=== PATIENT | female | born 1950 | race Caucasian/White ===

== ENCOUNTER 2017-07-07 16:08 | Observation (INO) | payer MEDICARE, MEDICAID ==
[~2017-07-07] VITALS: Ht 152.4 cm; Wt 71.9 kg
[~2017-07-07 16:08] MED LIST: ATIVAN0.5 MG PO; DICLOFENAC SODI PO; DICYCLOMINE10 MG PO; JANUVIA50 MG PO; LEVEMIR FL100 UNIT/M SC; LYRICA25 MG PO; OXYCODONE HCL15 MG PO; PLAVIX75 MG PO; PRILOSEC40 MG PO; TEMAZEPAM30 MG PO; ULTRAM50 M1 PO
[2017-07-07 16:58] LABS: HEMATOCRIT 31.2 % (37.0-47.0); HEMOGLOBIN 9.7 g/dl (12.0-16.0); IMMATURE GRANULOCYTES 0.3 % (0.0-1.0); MEAN CELL VOLUME 84.1 fL CALC (80.0-100.0); MEAN CORPUSCULAR HGB 26.1 pG CALC (26.0-32.0); MEAN CORPUSCULAR HGB CONC 31.1 g/L CALC (32.0-36.0); NEUT# 1.06 thou/uL (2.00-7.15); RED BLOOD COUNT 3.71 mill/uL (4.20-5.60); RED CELL DISTRI WIDTH 16.8 % (11.5-15.5)
[2017-07-07] MEDS ORDERED: PRAVASTATIN20 MG PO (16:59)
[2017-07-07] MEDS ORDERED: PROTONIX40 M2 PO (17:00)
[2017-07-07 17:39] LABS: ALBUMIN 3.6 g/dL (3.2-5.0); ALKALINE PHOSPHATASE 101 u/l (38-126); ANION GAP 16 (6-22 (CALC)); BILIRUBIN, TOTAL 0.6 mg/dL (0.0-1.4); BUN 8 mg/dL (8-23); BUN/CREATININE RATIO 11 (12-20 (CALC)); CALCIUM 9.4 mg/dL (8.4-10.2); CARBON DIOXIDE 26 mmol/l (22-30); CHLORIDE 105 mmol/l (95-108); CREATININE 0.7 mg/dL (0.5-1.0); GFR > 60 ML/MIN (>=60 (CALC)); GFR FOR AFR.AMER. > 60 ML/MIN (>=60 (CALC)); GLUCOSE 123 mg/dL (82-115); POTASSIUM 3.4 mmol/l (3.5-5.1); SGOT/AST 149 u/l (9-36); SGPT/ALT 73 u/l (11-66); SODIUM 143 mmol/l (137-146)
[2017-07-07 17:52] LABS: MYOGLOBIN 46 ng/mL (0 - 62)
[2017-07-07 19:27] VITALS: BP 176/77
[2017-07-08 00:40] VITALS: BP 107/67; BP 162/56
[2017-07-08 05:28] VITALS: BP 170/90
[2017-07-08 06:10] LABS: HEMATOCRIT 34.2 % (37.0-47.0); HEMOGLOBIN 10.8 g/dl (12.0-16.0); MEAN CELL VOLUME 83.2 fL CALC (80.0-100.0); MEAN CORPUSCULAR HGB 26.3 pG CALC (26.0-32.0); MEAN CORPUSCULAR HGB CONC 31.6 g/L CALC (32.0-36.0); RED BLOOD COUNT 4.11 mill/uL (4.20-5.60); RED CELL DISTRI WIDTH 16.5 % (11.5-15.5)
[2017-07-08 06:23] LABS: ANION GAP 15 (6-22 (CALC)); BUN 7 mg/dL (8-23); BUN/CREATININE RATIO 10 (12-20 (CALC)); CALCIUM 9.5 mg/dL (8.4-10.2); CALCULATED LDLCHOLESTEROL 78 mg/dL (62-129 (CALC)); CARBON DIOXIDE 26 mmol/l (22-30); CHLORIDE 105 mmol/l (95-108); CHOLESTEROL HDL RATIO 3.2 (<4.4 (CALC)); CREATININE 0.7 mg/dL (0.5-1.0); GFR > 60 ML/MIN (>=60 (CALC)); GFR FOR AFR.AMER. > 60 ML/MIN (>=60 (CALC)); GLUCOSE 115 mg/dL (82-115); HDL CHOLESTEROL 47 mg/dL (>=40); MAGNESIUM 1.7 mg/dL (1.6-2.3); POTASSIUM 3.4 mmol/l (3.5-5.1); SODIUM 143 mmol/l (137-146); TOTAL CHOLESTEROL 152 mg/dl (0-199); TOTAL TRIGLYCERIDES 134 mg/dl (30-149); VLDL CHOLESTROL 27 mg/dl (1-41 (CALC))
[2017-07-08 07:19] VITALS: BP 109/63
[2017-07-08 12:00] VITALS: BP 115/70
[2017-07-08] MEDS ORDERED: LEVEMIR100 UNIT/M SC (14:03)
[2017-07-08] MEDS ORDERED: LISINOPRIL5 MG PO (14:04)
[2017-07-08] MEDS ORDERED: LOPRESSOR25 MG PO (14:04)
== END 2017-07-08 14:58 | disposition home or self-care (01) ==
LOC: ED 16:08 → ED-I 17:50 → ED 18:03 → MS2 18:04
PROVIDERS: Emergency Medicine; ADMIT Internal Medicine; ATTEND Internal Medicine
DX: R07.9 Chest pain, unspecified (principal); I10 Essential (primary) hypertension; E11.40 Type 2 diabetes mellitus with diabetic neuropathy, unspecified; E78.5 Hyperlipidemia, unspecified; I25.10 Atherosclerotic heart disease of native coronary artery without angina pectoris; M19.90 Unspecified osteoarthritis, unspecified site; G89.29 Other chronic pain; Z85.3 Personal history of malignant neoplasm of breast; Z79.4 Long term (current) use of insulin; Z95.5 Presence of coronary angioplasty implant and graft; Z91.14 Patient's other noncompliance with medication regimen

== ENCOUNTER 2017-08-02 21:29 | Inpatient (IN) | payer MEDICARE, MEDICAID ==
[~2017-08-02] VITALS: Ht 152.4 cm; Wt 73.6 kg
[~2017-08-02 21:29] MED LIST changes: +LEVEMIR100 UNIT/M SC; +LISINOPRIL5 MG PO; +LOPRESSOR25 MG PO; +PRAVASTATIN20 MG PO; +PROTONIX40 M2 PO
--- NOTE | 2017-08-02 21:29 | NUR ---
RECEIVED VIA EMS, [id number].
[2017-08-02 22:04] LABS: HEMATOCRIT 38.2 % (37.0-47.0); HEMOGLOBIN 11.8 g/dl (12.0-16.0); IMMATURE GRANULOCYTES 0.7 % (0.0-1.0); MEAN CORPUSCULAR HGB 25.9 pG CALC (26.0-32.0); MEAN CORPUSCULAR HGB CONC 30.9 g/L CALC (32.0-36.0); NEUT# 5.17 thou/uL (2.00-7.15); RED BLOOD COUNT 4.55 mill/uL (4.20-5.60); RED CELL DISTRI WIDTH 14.7 % (11.5-15.5)
--- NOTE | 2017-08-02 22:15 | NUR ---
PT TO CT.
[2017-08-02 22:16] LABS: URINE BILIRUBIN - DIPSTICK NEGATIVE (NEGATIVE); URINE BLOOD DIPSTICK NEGATIVE (NEGATIVE); URINE CLARITY CLEAR; URINE COLOR YELLOW; URINE GLUCOSE - DIPSTICK NEGATIVE (NEGATIVE); URINE KETONE NEGATIVE (NEGATIVE); URINE LEUK ESTERASE NEGATIVE (NEGATIVE); URINE NITRITE - DIPSTICK NEGATIVE (Negative); URINE PROTEIN - DIPSTICK TRACE mg/dL (NEG-TRACE); URINE SPECIFIC GRAVITY 1.025; URINE UROBILINOGEN - DIPSTICK 0.2 E.U./dL (0.2)
[2017-08-02 22:32] LABS: ALBUMIN 4.2 g/dL (3.2-5.0); ALKALINE PHOSPHATASE 90 u/l (38-126); ANION GAP 18 (6-22 (CALC)); BILIRUBIN, TOTAL 0.4 mg/dL (0.0-1.4); BUN 9 mg/dL (8-23); BUN/CREATININE RATIO 8 (12-20 (CALC)); CALCIUM 9.6 mg/dL (8.4-10.2); CARBON DIOXIDE 21 mmol/l (22-30); CHLORIDE 110 mmol/l (95-108); CREATININE 1.2 mg/dL (0.5-1.0); GFR 45 ML/MIN (>=60 (CALC)); GFR FOR AFR.AMER. 54 ML/MIN (>=60 (CALC)); GLUCOSE 124 mg/dL (82-115); POTASSIUM 4.2 mmol/l (3.5-5.1); SGOT/AST 21 u/l (9-36); SGPT/ALT 23 u/l (11-66); SODIUM 145 mmol/l (137-146); TOTAL PROTEIN 8.1 g/dL (6.3-8.2)
--- NOTE | 2017-08-02 22:40 | NUR ---
PT RETURNED FROM CT. NO DISTRESS NOTED.
[2017-08-02 22:44] LABS: MYOGLOBIN 58 ng/mL (0 - 62)
--- NOTE | 2017-08-02 23:08 | NUR ---
ORTHO VS FLAT 153/75 P99 SITTING 148/76 P99 PT UNSTABLE TO STAND.
--- NOTE | 2017-08-02 23:40 | NUR ---
PT WITH SEIZURE ACTIVITY, EYES ROLED, PT BEGAN SHAKING, NOT RESPONSIVE. PT INCONTINENT URINE.
--- NOTE | 2017-08-02 23:43 | NUR ---
PT POST ICTAL, SNORING RESPIRATIONS.
[2017-08-02 23:44] LABS: BARBITURATES NEGATIVE (NEGATIVE); COCAINE NEGATIVE (NEGATIVE); METHADONE NEGATIVE (NEGATIVE); OXCYCODONE NEGATIVE (NEGATIVE); TETRAHYDROCANNABIONOL NEGATIVE (NEGATIVE); TRICYLIC ANTIDEPRESSANTS NEGATIVE (NEGATIVE)
--- NOTE | 2017-08-03 00:21 | NUR ---
REPORT CALLED TO [facility]
[2017-08-03 00:45] VITALS: BP 124/51
--- NOTE | 2017-08-03 00:45 | NUR ---
PT ARRIVED TO FLOOR VIA STRETCHER IN STABLE CONDITION ACCOMPANIED BY [facility] AND FAMILY;PT TRANSFERRED TO BED WITH 2 PERSON ASSIST;VS AND WT OBTAINED BY VERNON FOWLER;PT ALERT AND ORIENTED AT THIS TIME;RESPIRATIONS EVEN AND UNLABORED ON RA;PT ORIENTED TO ROOM AND CALL LIGHT AND VERBALIZES UNDERSTANDING;PT COMPLAINS OF HEAD AND BACK PAIN RATING 8/10 ON THE PAIN SCALE AND REQUESTS PAIN MEDICATION;PT TO BE MEDICATED ONCE MEDICATIONS ARE PROFILED;ASSESSMENT COMPLETED;PT REPORTS BEING ON OXYCODONE 30MG DAILY FOR 5+ YEARS AND SINCE MOVING HER PRIMARY CARE DOCTOR HASNT REFILLED HER SCRIPTS AND SHE HAS BEEN FEELING DIZZY AND CRAMPING OF HER LEGS SINCE;SEIZURE PRECAUTIONS PUT INTO PLACE;#20G TO RAC FLUSHED AND LR STARTED @ 100.0;X2 SKIN TEARS NOTED TO LEFT HAND,PT STATES THESE ARE FROM "THE FALL";SKIN CLEANED WITH NS,PHOTOGRAPHS OBTAINED AND COVER WITH BAND AIDS;SAFETY PRECAUTIONS REINFORCED;PT VOICES NO OTHER NEEDS OR CONCERNS AT THIS TIME;PT EDUCATED TO CALL FOR ASSISTANCE IF NEEDED;CALL LIGHT IN REACH;WILL CONTINUE TO MONITOR
--- NOTE | 2017-08-03 00:50 | NUR ---
PT TO [id number] WITH RN ON TELE.
--- NOTE | 2017-08-03 01:45 | NUR ---
PT MEDICATED WITH PERCOCET 10/325MG FOR BACK AND HEAD PAIN RATING 8/10 ON THE PAIN SCALE;WILL CONTINUE TO MONITOR
--- NOTE | 2017-08-03 04:00 | NUR ---
PT CALLED WRITTER TO THE ROOM AND REQUEST "SOMETHING FOR PAIN";PT RE-EDUCATED THAT SHE JUST GOT A PERCOCET @ 0145 AND THAT THEY ARE SCHEDULED EVERY 4HRS;PT VERBALIZES UNDERSTANDING AND STATES "IM EXHAUSTED SO ILL JUST GO TO SLEEP";IV FLUIDS CONTINUE TO INFUSE WELL;SEIZURE PRECAUTIONS IN PLACE;RESPIRATIONS EVEN AND UNLABORED;WILL CONTINUE TO MONITOR
--- NOTE | 2017-08-03 06:00 | NUR ---
PT RESTING IN SEMI FOWLERS POSITION WATCHING TV;PT COMPLAINS OF HEAD AND BACK PAIN RATING 9/10 ON THE PAIN SCALE AND REQUESTS PAIN MEDICATION;PT MEDICATED WITH PRN PERCOCET;PT DENIES ANY OTHER NEEDS AT THIS TIME;CALL LIGHT IN REACH;WILL CONTINUE TO MONITOR
[2017-08-03 06:30] LABS: ANION GAP 14 (6-22 (CALC)); BUN 9 mg/dL (8-23); BUN/CREATININE RATIO 11 (12-20 (CALC)); CALCIUM 9.3 mg/dL (8.4-10.2); CARBON DIOXIDE 21 mmol/l (22-30); CHLORIDE 113 mmol/l (95-108); CREATININE 0.8 mg/dL (0.5-1.0); GFR > 60 ML/MIN (>=60 (CALC)); GFR FOR AFR.AMER. > 60 ML/MIN (>=60 (CALC)); GLUCOSE 77 mg/dL (82-115); MAGNESIUM 2.1 mg/dL (1.6-2.3); POTASSIUM 4.1 mmol/l (3.5-5.1); SODIUM 144 mmol/l (137-146)
--- NOTE | 2017-08-03 06:30 | NUR ---
LAB CALLED WITH CRITICAL TROP OF 0.201,MD NOTIFED;VS AND EKG COMPLETED;PT ASYMPTOMATIC AT THIS TIME;WILL CONTINUE TO MONITOR
[2017-08-03 06:34] VITALS: BP 123/76
[2017-08-03 06:39] VITALS: BP 129/58
--- NOTE | 2017-08-03 07:25 | NUR ---
REPORT RECEIVED FROM NIGHT NURSE, PT.IN BED WITH LIGHTS OUT SLEEPING. NO S/S OF DISTRESS, CALL LIGHT W/IN REACH, BED IN LOWEST POSITION AND SEIZURE PRECAUTIONS IN PLACE.
[2017-08-03 08:00] VITALS: BP 120/54
--- NOTE | 2017-08-03 10:48 | NUR ---
PT.UPRIGHT IN BED ON TELEPHONE, UPON MY ENTERING THE ROOM, SHE HUNG UP THE PHONE AND PROCEEDED TO TELL ME ABOUT HER KIDS AND GRANDKIDS. PT.HAD REQUESTED HER PAIN MEDICATION AT 0923, BUT IT WAS NOT AVAILABLE YET. I MEDICATED PT.FOR C/O PAIN 06/11 AT THIS TIME. PT.ASSESSED, REPORTS BM YESTERDAY, NO DIFFICULTIES URINATING, LUNG SOUNDS ARE CLEAR, PT.REPORTS CRYING VERY EASILY ANV FEELING VERY EMOTIONAL ALL OF THE TIME, BUT REPORTS THAT SHE IS NOT ON ANYTHING FOR ANXIETY OR DEPRESSION, DENIES TAKING XANAX OR ANY OTHERS. REPORTS TAKING OXYCODONE 2-3X/DAY FOR 7 OR 8 YEARS. TWO SKIN TEARS ON LEFT WRIST, DRESSING CDI
--- NOTE | 2017-08-03 11:27 | NUR ---
LAB CALLED TO REPORT TROPONIN LEVELS 0.160, TRENDING DOWN FROM 0.201. DR. SCHILLING HAS BEEN NOTIFIED.
[2017-08-03 14:28] VITALS: BP 121/50
[2017-08-03 19:00] VITALS: BP 122/72
--- NOTE | 2017-08-03 19:30 | NUR ---
PT COMPLAINS OF LOWER BACK PAIN RATING 9/10 ON THE PAIN SCALE AND REQUESTS PAIN MEDICATION;PT MEDICATED WITH PRN PERCOCET AND REPOSITIONED IN BED;ASSESSMENT COMPLETED;#20G TO RAC INFUSING LR @ 100.0 WELL,IV SITE APPEARS HEALTHY;RESPIRATIONS EVEN AND UNLABORED ON RA;SEIZURE PRECAUTIONS IN PLACE;SKIN TEARS X2 TO LEFT HAND NOTED AND COVERED WITH BAND AIDS,PHOTOGRAPHS IN CHART;SAFETY PRECAUTIONS REINFORCED;PT VOICES NO OTHER NEEDS AT THIS TIME;CALL LIGHT IN REACH;WILL CONTINUE TO MONITOR
[2017-08-04 00:15] VITALS: BP 122/68
--- NOTE | 2017-08-04 00:45 | NUR ---
PT RESTING IN BED WITH IV FLUIDS INFUSING WELL;SEIZURE PRECAUTIONS IN PLACE;PT VOICES NO COMPLAINTS AT THIS TIME;CALL LIGHT IN REACH;WILL CONTINUE TO MONITOR
[2017-08-04 04:50] VITALS: BP 123/56
--- NOTE | 2017-08-04 04:50 | NUR ---
PT REQUESTS PAIN MEDICATION FOR LEFT SHOULDER PAIN RATING 9/10 ON THE PAIN SCALE;PT MEDICATED WITH PRN PERCOCET;IV FLUIDS INFUSING WELL TO RAC;RESPIRATIONS EVEN AND UNLABORED;SEIZURE PRECAUTIONS IN PLACE;PT DENIES ANY NEEDS AT THIS TIME;CALL LIGHT IN REACH;WILL CONTINUE TO MONITOR
[2017-08-04 06:09] LABS: HEMATOCRIT 33.6 % (37.0-47.0); HEMOGLOBIN 10.5 g/dl (12.0-16.0); IMMATURE GRANULOCYTES 0.4 % (0.0-1.0); MEAN CELL VOLUME 83.8 fL CALC (80.0-100.0); MEAN CORPUSCULAR HGB 26.2 pG CALC (26.0-32.0); MEAN CORPUSCULAR HGB CONC 31.3 g/L CALC (32.0-36.0); NEUT# 1.62 thou/uL (2.00-7.15); RED BLOOD COUNT 4.01 mill/uL (4.20-5.60); RED CELL DISTRI WIDTH 14.6 % (11.5-15.5)
[2017-08-04 06:31] LABS: ANION GAP 14 (6-22 (CALC)); BUN 8 mg/dL (8-23); BUN/CREATININE RATIO 11 (12-20 (CALC)); CALCIUM 9.2 mg/dL (8.4-10.2); CARBON DIOXIDE 23 mmol/l (22-30); CHLORIDE 111 mmol/l (95-108); CREATININE 0.8 mg/dL (0.5-1.0); GFR > 60 ML/MIN (>=60 (CALC)); GFR FOR AFR.AMER. > 60 ML/MIN (>=60 (CALC)); GLUCOSE 84 mg/dL (82-115); POTASSIUM 4.8 mmol/l (3.5-5.1); SODIUM 143 mmol/l (137-146)
--- NOTE | 2017-08-04 07:10 | NUR ---
PT.IN BED W/TV ON AND LIGHTS LOW, AWOKE TO OUR ENTERING ROOM. REPORT RECEIVED FROM NIGHT NURSE. PT.DENIES ANY NEEDS AT THIS TIME. WILL F/UP WITH V/S AND AM MEDICATIONS. CALL LIGHT IS AT PT.SIDE.
[2017-08-04 07:35] VITALS: BP 138/81
[2017-08-04 11:08] VITALS: BP 143/75
--- NOTE | 2017-08-04 11:24 | NUR ---
SHANKAR WITH LAB CALLED TO REPORT CRITICAL TROPONIN OF 0.042. PT.TROPONIN LEVELS ARE TRENDING DOWN FROM 0.160 TO NOW 0.042. JORGE FOX AND ARE ON THE FLOOR AT THIS TIME AND HAVE BEEN NOTIFIED, ALTHOUGH THE WERE PREVIOUSLY AWARE OF THE TREND.
--- NOTE | 2017-08-04 12:02 | NUR ---
PT.IV SITE FLUSHES, BUT IS LEAKING SMALL AMOUNT AND PT.REPORTS THAT IT IS HURTING UPON FLUSHING/ POSSIBLE INFILTRATE. SITE APPEARS HEALTHY. NOTIFIED JORGE FXO, WAITING TO DECIDE POC BEFORE REPLACING IV. PT.WAS MEDICATED FOR PAIN REPORTED 06/11, PT.IS TALKING POC AND EATING LUNCH AT THIS TIME,WATCHING TV. CALL LIGHT W/IN REACH. DENIES ANY OTHER NEEDS AT THIS TIME
[2017-08-04] MEDS ORDERED: LEVETIRACETAM500 MG PO (13:24)
[2017-08-04] MEDS ORDERED: ASPIRIN 8181 MG PO (13:34)
[2017-08-04 15:44] VITALS: BP 126/69
== END 2017-08-04 17:37 | disposition home or self-care (01) | DRG 101 ==
LOC: ED 21:29 → ED-I 21:48 → ED 23:54 → MS2 23:55
PROVIDERS: Emergency Medicine; Nurse Practitioner Family; ADMIT Internal Medicine; ATTEND Internal Medicine
DX: G40.409 Other generalized epilepsy and epileptic syndromes, not intractable, without status epilepticus (principal); N17.9 Acute kidney failure, unspecified; F13.239 Sedative, hypnotic or anxiolytic dependence with withdrawal, unspecified; E11.42 Type 2 diabetes mellitus with diabetic polyneuropathy; E86.0 Dehydration; I10 Essential (primary) hypertension; I25.10 Atherosclerotic heart disease of native coronary artery without angina pectoris; F41.9 Anxiety disorder, unspecified; E78.5 Hyperlipidemia, unspecified; M19.90 Unspecified osteoarthritis, unspecified site; R94.31 Abnormal electrocardiogram [ECG] [EKG]; R74.8 Abnormal levels of other serum enzymes; G89.4 Chronic pain syndrome; K21.9 Gastro-esophageal reflux disease without esophagitis; D64.9 Anemia, unspecified; Z79.4 Long term (current) use of insulin; Z85.3 Personal history of malignant neoplasm of breast; Z79.82 Long term (current) use of aspirin; Z79.02 Long term (current) use of antithrombotics/antiplatelets; Z95.5 Presence of coronary angioplasty implant and graft; Z91.81 History of falling
CPT/HCPCS: A9579; J1953

== ENCOUNTER 2018-06-23 11:15 | Emergency (ER) | payer MEDICARE, MEDICAID ==
[~2018-06-23] VITALS: Ht 152.4 cm; Wt 68.0 kg
[~2018-06-23 11:15] MED LIST changes: +ASPIRIN 8181 MG PO; +LEVETIRACETAM500 MG PO
[2018-06-23] MEDS ORDERED: METFORMIN500 MG PO (11:28)
[2018-06-23] MEDS ORDERED: LYRICA50 MG PO (11:30)
[2018-06-23] MEDS ORDERED: TRAZODONE50 MG PO (11:32)
[2018-06-23] MEDS ORDERED: ROZEREM8 MG PO (11:33)
[2018-06-23] MEDS ORDERED: ONDANSETRON HCL4 MG PO (11:34)
[2018-06-23] MEDS ORDERED: PIOGLITAZONE HC30 MG PO (11:35)
[2018-06-23] MEDS ORDERED: PRAVASTATIN SOD20 MG PO (11:36)
[2018-06-23] MEDS ORDERED: LOSARTAN POT25 MG PO (11:38)
[2018-06-23 11:47] LABS: HEMATOCRIT 37.3 % (37.0-47.0); HEMOGLOBIN 11.7 g/dl (12.0-16.0); IMMATURE GRANULOCYTES 0.8 % (0.0-5.0); MEAN CELL VOLUME 84.2 fL CALC (80.0-100.0); MEAN CORPUSCULAR HGB 26.4 pG CALC (26.0-32.0); MEAN CORPUSCULAR HGB CONC 31.4 g/L CALC (32.0-36.0); NEUT# 5.37 thou/uL (2.00-7.15); RED BLOOD COUNT 4.43 mill/uL (4.20-5.60); RED CELL DISTRI WIDTH 14.7 % (11.5-15.5)
[2018-06-23 12:05] LABS: ALKALINE PHOSPHATASE 67 u/l (38-126); ANION GAP 18 (6-22 (CALC)); BILIRUBIN, TOTAL 0.2 mg/dL (0.0-1.4); BUN 5 mg/dL (8-23); BUN/CREATININE RATIO 10 (12-20 (CALC)); CARBON DIOXIDE 21 mmol/l (22-30); CHLORIDE 105 mmol/l (95-108); CREATININE 0.5 mg/dL (0.5-1.0); ETHYL ALCOHOL 0 mg/dl (0-30); GFR > 60 ML/MIN (>=60 (CALC)); GFR FOR AFR.AMER. > 60 ML/MIN (>=60 (CALC)); SGOT/AST 19 u/l (9-36); SGPT/ALT 21 u/l (11-66); SODIUM 140 mmol/l (137-146); TOTAL PROTEIN 7.9 g/dL (6.3-8.2)
[2018-06-23 12:21] LABS: POTASSIUM 3.8 mmol/l (3.5-5.1)
[2018-06-23 12:59] LABS: URINE BILIRUBIN - DIPSTICK NEGATIVE (NEGATIVE); URINE BLOOD DIPSTICK NEGATIVE (NEGATIVE); URINE COLOR YELLOW; URINE GLUCOSE - DIPSTICK 100 mg/dL (NEGATIVE); URINE KETONE NEGATIVE (NEGATIVE); URINE LEUK ESTERASE NEGATIVE (NEGATIVE); URINE NITRITE - DIPSTICK NEGATIVE (Negative); URINE PH 6.5 (4.5-8.0); URINE PROTEIN - DIPSTICK NEGATIVE (NEG-TRACE); URINE SPECIFIC GRAVITY <=1.005; URINE UROBILINOGEN - DIPSTICK 0.2 E.U./dL (0.2)
[2018-06-23 13:01] LABS: URINE CLARITY CLEAR
[2018-06-23 13:04] LABS: BARBITURATES NEGATIVE (NEGATIVE); COCAINE NEGATIVE (NEGATIVE); METHADONE NEGATIVE (NEGATIVE); OXCYCODONE NEGATIVE (NEGATIVE); TETRAHYDROCANNABIONOL NEGATIVE (NEGATIVE); TRICYLIC ANTIDEPRESSANTS NEGATIVE (NEGATIVE)
[2018-06-23 13:45] VITALS: BP 162/75
== END 2018-06-23 13:45 | disposition home or self-care (01) ==
LOC: ED 11:15
PROVIDERS: Emergency Medicine
DX: S00.03XA Contusion of scalp, initial encounter (principal); F41.9 Anxiety disorder, unspecified; G40.909 Epilepsy, unspecified, not intractable, without status epilepticus; E11.9 Type 2 diabetes mellitus without complications; I25.10 Atherosclerotic heart disease of native coronary artery without angina pectoris; W06.XXXA Fall from bed, initial encounter; Y92.003 Bedroom of unspecified non-institutional (private) residence as the place of occurrence of the external cause; Z95.5 Presence of coronary angioplasty implant and graft; Z85.3 Personal history of malignant neoplasm of breast; Z79.01 Long term (current) use of anticoagulants; Z79.82 Long term (current) use of aspirin; Z79.899 Other long term (current) drug therapy
CPT/HCPCS: J2060

== ENCOUNTER 2019-01-11 09:59 | Emergency (ER) | payer MEDICARE, MEDICAID ==
[~2019-01-11] VITALS: Ht 152.4 cm; Wt 68.2 kg
[~2019-01-11 09:59] MED LIST changes: +LOSARTAN POT25 MG PO; +LYRICA50 MG PO; +METFORMIN500 MG PO; +ONDANSETRON HCL4 MG PO; +PIOGLITAZONE HC30 MG PO; +PRAVASTATIN SOD20 MG PO; +ROZEREM8 MG PO; +TRAZODONE50 MG PO
[2019-01-11] MEDS ORDERED: PREDNISONE20 MG PO (13:50)
[2019-01-11] MEDS ORDERED: KEFLEX500 M1 PO (13:50)
[2019-01-11] MEDS ORDERED: ZPAK PO (13:50)
[2019-01-11] MEDS ORDERED: VENTOLIN HFA IN (13:50)
[2019-01-11] MEDS ORDERED: TESSALON PER100 MG PO (13:50)
[2019-01-11 14:04] VITALS: BP 132/65
== END 2019-01-11 14:04 | disposition home or self-care (01) ==
LOC: ED 09:59
DX: J06.9 Acute upper respiratory infection, unspecified (principal); J40 Bronchitis, not specified as acute or chronic; R09.81 Nasal congestion; R05 Cough; R50.9 Fever, unspecified

== ENCOUNTER 2019-09-16 17:33 | Emergency (ER) | payer MEDICARE, MEDICAID ==
[~2019-09-16] VITALS: Ht 152.4 cm; Wt 77.0 kg
[~2019-09-16 17:33] MED LIST changes: +KEFLEX500 M1 PO; +PREDNISONE20 MG PO; +TESSALON PER100 MG PO; +VENTOLIN HFA IN; +ZPAK PO
[2019-09-16 18:38] LABS: RED BLOOD COUNT 3.11 mill/uL (4.20-5.60)
[2019-09-16 18:39] LABS: IMMATURE GRANULOCYTES 0.4 % (0.0-5.0); MEAN CORPUSCULAR HGB 29.9 pG CALC (26.0-32.0); MEAN CORPUSCULAR HGB CONC 31.7 g/L CALC (32.0-36.0); NEUT# 2.6 thou/uL (2.00-7.15)
[2019-09-16 18:41] LABS: HEMATOCRIT 29.3 % (37.0-47.0); HEMOGLOBIN 9.3 g/dl (12.0-16.0); MEAN CELL VOLUME 94.2 fL CALC (80.0-100.0)
[2019-09-16 18:51] LABS: ALBUMIN 3.6 g/dL (3.2-5.0); ALKALINE PHOSPHATASE 93 u/l (38-126); ANION GAP 12 (6-22 (CALC)); BUN 16 mg/dL (8-23); BUN/CREATININE RATIO 19 (12-20 (CALC)); CARBON DIOXIDE 25 mmol/l (22-30); CHLORIDE 107 mmol/l (95-108); CREATININE 0.8 mg/dL (0.5-1.0); GFR > 60 ML/MIN (>=60 (CALC)); GFR FOR AFR.AMER. > 60 ML/MIN (>=60 (CALC)); POTASSIUM 3.8 mmol/l (3.5-5.1); SGOT/AST 28 u/l (9-36); SODIUM 141 mmol/l (137-146); TOTAL PROTEIN 6.9 g/dL (6.3-8.2)
[2019-09-16 18:54] LABS: BILIRUBIN, TOTAL 0.2 mg/dL (0.0-1.4)
[2019-09-16 19:34] LABS: URINE BILIRUBIN - DIPSTICK NEGATIVE (NEGATIVE); URINE BLOOD DIPSTICK NEGATIVE (NEGATIVE); URINE COLOR YELLOW; URINE GLUCOSE - DIPSTICK NEGATIVE (NEGATIVE); URINE KETONE NEGATIVE (NEGATIVE); URINE LEUK ESTERASE TRACE (NEGATIVE); URINE NITRITE - DIPSTICK NEGATIVE (Negative); URINE PH 6.5 (4.5-8.0); URINE PROTEIN - DIPSTICK NEGATIVE (NEG-TRACE); URINE SPECIFIC GRAVITY <=1.005; URINE UROBILINOGEN - DIPSTICK 0.2 E.U./dL (0.2)
[2019-09-16 20:37] VITALS: BP 133/55
[2019-09-16 20:39] LABS: AMYLASE 46 u/l (30-110); LIPASE 61 u/l (23-300)
[2019-09-16] MEDS ORDERED: PREVACID30 M3 PO (20:52)
== END 2019-09-16 21:07 | disposition home or self-care (01) ==
LOC: ED 17:33
PROVIDERS: Emergency Medicine; Family Medicine
DX: R16.2 Hepatomegaly with splenomegaly, not elsewhere classified (principal); E11.9 Type 2 diabetes mellitus without complications; G40.909 Epilepsy, unspecified, not intractable, without status epilepticus; I25.10 Atherosclerotic heart disease of native coronary artery without angina pectoris; Z95.5 Presence of coronary angioplasty implant and graft; R10.13 Epigastric pain; R10.12 Left upper quadrant pain; R11.2 Nausea with vomiting, unspecified
CPT/HCPCS: Q9967

== ENCOUNTER 2019-12-02 | Emergency (ER) | payer MEDICARE, MEDICAID ==
[~2019-12-02] MED LIST changes: +PREVACID30 M3 PO
[2019-12-02 16:44] LABS: IMMATURE GRANULOCYTES 0.5 % (0.0-5.0); MEAN CELL VOLUME 93.2 fL CALC (80.0-100.0); MEAN CORPUSCULAR HGB 29.5 pG CALC (26.0-32.0); MEAN CORPUSCULAR HGB CONC 31.7 g/L CALC (32.0-36.0); NEUT# 5.63 thou/uL (2.00-7.15); RED BLOOD COUNT 4.68 mill/uL (4.20-5.60); RED CELL DISTRI WIDTH 13.4 % (11.5-15.5)
[2019-12-02 16:46] LABS: HEMATOCRIT 43.6 % (37.0-47.0); HEMOGLOBIN 13.8 g/dl (12.0-16.0)
[2019-12-02 17:09] LABS: CREATININE 1.1 mg/dL (0.5-1.0); POTASSIUM 3.3 mmol/l (3.5-5.1)
[2019-12-02 17:14] LABS: INTERNATIONAL NORMALIZED RATIO 1.1 RATIO (0.7-1.3); PROTHROMBIN TIME 11.1 SECONDS (9.0-12.5)
[2019-12-02 17:16] LABS: BILIRUBIN, TOTAL 0.5 mg/dL (0.0-1.4); TOTAL PROTEIN 8.9 g/dL (6.3-8.2)
[2019-12-02 17:58] LABS: URINE BILIRUBIN - DIPSTICK NEGATIVE (NEGATIVE); URINE BLOOD DIPSTICK NEGATIVE (NEGATIVE); URINE COLOR YELLOW; URINE GLUCOSE - DIPSTICK NEGATIVE (NEGATIVE); URINE KETONE TRACE mg/dL (NEGATIVE); URINE LEUK ESTERASE NEGATIVE (NEGATIVE); URINE NITRITE - DIPSTICK NEGATIVE (Negative); URINE PROTEIN - DIPSTICK TRACE mg/dL (NEG-TRACE); URINE SPECIFIC GRAVITY 1.025; URINE UROBILINOGEN - DIPSTICK 0.2 E.U./dL (0.2)
[2019-12-02 18:02] LABS: COCAINE NEGATIVE (NEGATIVE); METHADONE NEGATIVE (NEGATIVE); TETRAHYDROCANNABIONOL NEGATIVE (NEGATIVE)
[2019-12-02 18:03] LABS: BARBITURATES NEGATIVE (NEGATIVE); OXCYCODONE NEGATIVE (NEGATIVE); TRICYLIC ANTIDEPRESSANTS POSITIVE (NEGATIVE)
== END 2019-12-02 23:45 | disposition short-term general hospital (02) ==
PROVIDERS: Family Medicine
DX: G40.909 Epilepsy, unspecified, not intractable, without status epilepticus (principal); E11.9 Type 2 diabetes mellitus without complications; I25.10 Atherosclerotic heart disease of native coronary artery without angina pectoris; T42.76XA Underdosing of unspecified antiepileptic and sedative-hypnotic drugs, initial encounter; Z91.128 Patient's intentional underdosing of medication regimen for other reason; Z95.5 Presence of coronary angioplasty implant and graft
CPT/HCPCS: J1953; J2060

== ENCOUNTER 2019-12-23 | Emergency (ER) | payer MEDICARE, MEDICAID ==
[2019-12-23 15:34] LABS: HEMATOCRIT 36.9 % (37.0-47.0); HEMOGLOBIN 11.8 g/dl (12.0-16.0); MEAN CELL VOLUME 92.5 fL CALC (80.0-100.0); MEAN CORPUSCULAR HGB 29.6 pG CALC (26.0-32.0); NEUT# 3.13 thou/uL (2.00-7.15); RED BLOOD COUNT 3.99 mill/uL (4.20-5.60); RED CELL DISTRI WIDTH 13.1 % (11.5-15.5)
[2019-12-23 15:45] LABS: ALBUMIN 4.3 g/dL (3.2-5.0); BILIRUBIN, TOTAL 0.3 mg/dL (0.0-1.4); BUN 14 mg/dL (8-23); BUN/CREATININE RATIO 15 (12-20 (CALC)); CHLORIDE 103 mmol/l (95-108); CREATININE 0.9 mg/dL (0.5-1.0); GFR > 60 ML/MIN (>=60 (CALC)); GFR FOR AFR.AMER. > 60 ML/MIN (>=60 (CALC)); LIPASE 208 u/l (23-300); SGOT/AST 26 u/l (9-36); SODIUM 138 mmol/l (137-146); TOTAL PROTEIN 8.3 g/dL (6.3-8.2)
[2019-12-23 15:53] LABS: ALKALINE PHOSPHATASE 129 u/l (38-126); ANION GAP 12 (6-22 (CALC)); CARBON DIOXIDE 27 mmol/l (22-30); POTASSIUM 4.2 mmol/l (3.5-5.1)
[2019-12-23 16:51] LABS: URINE BILIRUBIN - DIPSTICK NEGATIVE (NEGATIVE); URINE BLOOD DIPSTICK NEGATIVE (NEGATIVE); URINE COLOR YELLOW; URINE GLUCOSE - DIPSTICK NEGATIVE (NEGATIVE); URINE KETONE NEGATIVE (NEGATIVE); URINE LEUK ESTERASE NEGATIVE (NEGATIVE); URINE NITRITE - DIPSTICK NEGATIVE (Negative); URINE PROTEIN - DIPSTICK NEGATIVE (NEG-TRACE); URINE SPECIFIC GRAVITY 1.015; URINE UROBILINOGEN - DIPSTICK 0.2 E.U./dL (0.2)
[2019-12-23] MEDS ORDERED: ZPAK PO ×2 (18:24→19:20)
== END 2019-12-23 19:15 | disposition home or self-care (01) ==
PROVIDERS: Family Medicine
DX: J06.9 Acute upper respiratory infection, unspecified (principal); E11.9 Type 2 diabetes mellitus without complications; G40.909 Epilepsy, unspecified, not intractable, without status epilepticus; I25.10 Atherosclerotic heart disease of native coronary artery without angina pectoris; Z95.5 Presence of coronary angioplasty implant and graft; Z20.828 Contact with and (suspected) exposure to other viral communicable diseases
CPT/HCPCS: Q9967

== ENCOUNTER 2020-02-24 22:10 | Emergency (ER) | payer MEDICARE, MEDICAID ==
[2020-02-25 00:14] VITALS: BP 172/73
[2020-02-25] MEDS ORDERED: ULTRAM50 M1 PO (00:14)
== END 2020-02-25 00:14 | disposition home or self-care (01) ==
LOC: ED 22:10
DX: S00.03XA Contusion of scalp, initial encounter (principal); S33.5XXA Sprain of ligaments of lumbar spine, initial encounter; G40.909 Epilepsy, unspecified, not intractable, without status epilepticus; E11.9 Type 2 diabetes mellitus without complications; W01.0XXA Fall on same level from slipping, tripping and stumbling without subsequent striking against object, initial encounter; Y93.89 Activity, other specified; Y92.009 Unspecified place in unspecified non-institutional (private) residence as the place of occurrence of the external cause

== ENCOUNTER 2020-02-29 12:18 | Emergency (ER) | payer MEDICARE, MEDICAID ==
[2020-02-29 13:33] LABS: HEMATOCRIT 37.6 % (37.0-47.0); HEMOGLOBIN 12.5 g/dl (12.0-16.0); IMMATURE GRANULOCYTES 0.4 % (0.0-5.0); MEAN CELL VOLUME 92.4 fL CALC (80.0-100.0); MEAN CORPUSCULAR HGB 30.7 pG CALC (26.0-32.0); MEAN CORPUSCULAR HGB CONC 33.2 g/dL CAL (32.0-36.0); NEUT# 2.48 thou/uL (2.00-7.15); RED BLOOD COUNT 4.07 mill/uL (4.20-5.60)
[2020-02-29 13:52] LABS: ALBUMIN 3.9 g/dL (3.2-5.0); ALKALINE PHOSPHATASE 95 u/l (38-126); ANION GAP 11 (6-22 (CALC)); BUN 13 mg/dL (8-23); BUN/CREATININE RATIO 15 (12-20 (CALC)); CARBON DIOXIDE 22 mmol/l (22-30); CHLORIDE 108 mmol/l (95-108); CREATININE 0.9 mg/dL (0.5-1.0); GFR > 60 ML/MIN (>=60 (CALC)); GFR FOR AFR.AMER. > 60 ML/MIN (>=60 (CALC)); POTASSIUM 4.1 mmol/l (3.5-5.1); SGOT/AST 31 u/l (9-36); SODIUM 136 mmol/l (137-146); TOTAL PROTEIN 7.2 g/dL (6.3-8.2)
[2020-02-29 14:05] LABS: BILIRUBIN, TOTAL 0.6 mg/dL (0.0-1.4)
[2020-02-29] MEDS ORDERED: NAPROXEN500 MG PO (14:47)
[2020-02-29 15:02] VITALS: BP 144/70
== END 2020-02-29 15:52 | disposition home or self-care (01) ==
LOC: ED 12:18
PROVIDERS: Emergency Medicine
DX: S73.101A Unspecified sprain of right hip, initial encounter (principal); S20.211A Contusion of right front wall of thorax, initial encounter; E11.9 Type 2 diabetes mellitus without complications; I25.10 Atherosclerotic heart disease of native coronary artery without angina pectoris; G40.909 Epilepsy, unspecified, not intractable, without status epilepticus; W18.30XA Fall on same level, unspecified, initial encounter; Y92.009 Unspecified place in unspecified non-institutional (private) residence as the place of occurrence of the external cause; Z95.5 Presence of coronary angioplasty implant and graft

== ENCOUNTER 2020-03-07 10:03 | Emergency (ER) | payer MEDICARE, MEDICAID ==
[~2020-03-07 10:03] MED LIST changes: +NAPROXEN500 MG PO
[2020-03-07] MEDS ORDERED: PREGABALIN200 MG PO (10:40)
[2020-03-07] MEDS ORDERED: HYDROCODONE BIT1 TA7 PO (10:41)
[2020-03-07] MEDS ORDERED: DESYREL50 MG PO (10:46)
[2020-03-07] MEDS ORDERED: PRAVASTATIN40 MG PO (10:49)
[2020-03-07] MEDS ORDERED: DULOXETINE HCL20 MG PO (10:50)
[2020-03-07] MEDS ORDERED: PANTOPRAZOLE SO40 M1 PO (10:50)
[2020-03-07] MEDS ORDERED: CLOPIDOGREL75 MG PO (10:50)
[2020-03-07 11:20] VITALS: BP 138/98
== END 2020-03-07 11:20 | disposition home or self-care (01) ==
LOC: ED 10:03
DX: G89.4 Chronic pain syndrome (principal); E11.9 Type 2 diabetes mellitus without complications; G40.909 Epilepsy, unspecified, not intractable, without status epilepticus

== ENCOUNTER 2020-03-08 09:23 | Emergency (ER) | payer MEDICARE, MEDICAID ==
[~2020-03-08 09:23] MED LIST changes: +CLOPIDOGREL75 MG PO; +DESYREL50 MG PO; +DULOXETINE HCL20 MG PO; +HYDROCODONE BIT1 TA7 PO; +PANTOPRAZOLE SO40 M1 PO; +PRAVASTATIN40 MG PO; +PREGABALIN200 MG PO
[2020-03-08 11:27] LABS: HEMATOCRIT 33.7 % (37.0-47.0); HEMOGLOBIN 11.4 g/dl (12.0-16.0); IMMATURE GRANULOCYTES 1.1 % (0.0-5.0); MEAN CELL VOLUME 91.6 fL CALC (80.0-100.0); MEAN CORPUSCULAR HGB CONC 33.8 g/dL CAL (32.0-36.0); NEUT# 2.55 thou/uL (2.00-7.15); RED BLOOD COUNT 3.68 mill/uL (4.20-5.60); RED CELL DISTRI WIDTH 12.8 % (11.5-15.5)
[2020-03-08 12:21] LABS: ALBUMIN 3.6 g/dL (3.2-5.0); ALKALINE PHOSPHATASE 118 u/l (38-126); ANION GAP 8 (6-22 (CALC)); BILIRUBIN, TOTAL 0.4 mg/dL (0.0-1.4); BUN 13 mg/dL (8-23); BUN/CREATININE RATIO 17 (12-20 (CALC)); CARBON DIOXIDE 29 mmol/l (22-30); CHLORIDE 101 mmol/l (95-108); CREATININE 0.8 mg/dL (0.5-1.0); GFR > 60 ML/MIN (>=60 (CALC)); GFR FOR AFR.AMER. > 60 ML/MIN (>=60 (CALC)); POTASSIUM 3.4 mmol/l (3.5-5.1); SGOT/AST 54 u/l (9-36); SODIUM 135 mmol/l (137-146); TOTAL PROTEIN 6.8 g/dL (6.3-8.2)
[2020-03-08 13:10] LABS: URINE BILIRUBIN - DIPSTICK NEGATIVE (NEGATIVE); URINE BLOOD DIPSTICK NEGATIVE (NEGATIVE); URINE COLOR YELLOW; URINE GLUCOSE - DIPSTICK NEGATIVE (NEGATIVE); URINE KETONE NEGATIVE (NEGATIVE); URINE LEUK ESTERASE NEGATIVE (NEGATIVE); URINE NITRITE - DIPSTICK NEGATIVE (Negative); URINE PH 5.5 (4.5-8.0); URINE PROTEIN - DIPSTICK NEGATIVE (NEG-TRACE); URINE SPECIFIC GRAVITY 1.015
[2020-03-08 14:10] VITALS: BP 128/60
== END 2020-03-08 14:13 | disposition home or self-care (01) ==
LOC: ED 09:23
PROVIDERS: Student in an Organized Health Care Education/Training Program
DX: S00.03XA Contusion of scalp, initial encounter (principal); G89.4 Chronic pain syndrome; E11.9 Type 2 diabetes mellitus without complications; I25.10 Atherosclerotic heart disease of native coronary artery without angina pectoris; G40.909 Epilepsy, unspecified, not intractable, without status epilepticus; W18.30XA Fall on same level, unspecified, initial encounter; Y92.009 Unspecified place in unspecified non-institutional (private) residence as the place of occurrence of the external cause; Z95.5 Presence of coronary angioplasty implant and graft; Z91.81 History of falling

== ENCOUNTER 2020-03-18 22:21 | Inpatient (IN) | payer MEDICARE, MEDICAID ==
[~2020-03-18] VITALS: Ht 243.8 cm; Wt 68.7 kg
--- NOTE | 2020-03-18 22:21 | NUR ---
A/OX3 F FROM HOME VIA EMS WITH STATED WEAAKNESS NS FALL THIS AM PT C/O PAIN L KNEE BACK AND L HIP THERE IS A SMALL SKIN ABRASION OVER L KNEE AND A SMALL SKIN BRUISE L SMALL TOE.PT DENIES LOC,STATED SHE HAS BEENWEAK FOR YEARS AND THIS IS NOT A NEW SYMPTOM
[2020-03-18 23:30] LABS: URINE BLOOD DIPSTICK LARGE (NEGATIVE); URINE COLOR YELLOW; URINE GLUCOSE - DIPSTICK NEGATIVE (NEGATIVE); URINE KETONE TRACE mg/dL (NEGATIVE); URINE NITRITE - DIPSTICK NEGATIVE (Negative); URINE PH 6.5 (4.5-8.0); URINE PROTEIN - DIPSTICK TRACE mg/dL (NEG-TRACE)
[2020-03-18 23:41] LABS: URINE LEUK ESTERASE MODERATE (NEGATIVE)
--- NOTE | 2020-03-18 23:42 | NUR ---
HOB ELEV 45 DEGREES.ON O2 NO CP NO SOB NO COUGH NO CONGESTION
[2020-03-18 23:45] LABS: URINE BILIRUBIN - DIPSTICK MODERATEA (NEGATIVE)
[2020-03-18 23:52] LABS: HEMATOCRIT 36.8 % (37.0-47.0); IMMATURE GRANULOCYTES 2.1 % (0.0-5.0); MEAN CORPUSCULAR HGB CONC 32.6 g/dL CAL (32.0-36.0); NEUT# 2.94 thou/uL (2.00-7.15); RED CELL DISTRI WIDTH 13.1 % (11.5-15.5)
[2020-03-18 23:54] LABS: URINE AMORPH SEDIMENT MANY hpf (NONE-FEW); URINE BACTERIA FEW hpf; URINE RBC TNTC RBC/hpf (0-5); URINE SQUAMOUS EPITHELIAL CELL FEW EPI/hpf (0-FEW)
[2020-03-19] VITALS (16 sets, daily range): BP systolic 107–186; BP diastolic 49–107
[2020-03-19 00:12] LABS: ALBUMIN 3.5 g/dL (3.2-5.0); CREATININE 1.3 mg/dL (0.5-1.0); POTASSIUM 3.9 mmol/l (3.5-5.1); TOTAL PROTEIN 6.9 g/dL (6.3-8.2)
[2020-03-19 00:16] LABS: BILIRUBIN, TOTAL 0.6 mg/dL (0.0-1.4)
[2020-03-19 00:36] LABS: D-DIMER 1.3 mg/L (0.19-0.60); PROTHROMBIN TIME 10.6 SECONDS (9.0-12.5)
--- NOTE | 2020-03-19 00:38 | NUR ---
W/P/D SKIN DENIES PAIN DR Jones INFORMED OF VS.
--- NOTE | 2020-03-19 01:35 | NUR ---
N0 COUGH, NO CONGESTION DENIES PAINA/OX3 SR NO ECTOPY.W/P/D SKIN
--- NOTE | 2020-03-19 02:00 | NUR ---
PHONE REEPORT TO NURSE ALLEN IN ICU
--- NOTE | 2020-03-19 02:05 | NUR ---
PT IS IN NO RESP DISTRESS NO COUGH NO CONGESTION A/OX3 W/P/D SKIN SR NO ECTOPY.
--- NOTE | 2020-03-19 02:08 | NUR ---
PT TRANSPORTED TO ICU ON O2 MONITOR INSOLATION IN STABLE CONDITION
--- NOTE | 2020-03-19 02:15 | NUR ---
PATIENT ARRIVES VIA ER STRETCHER ON AEROSPACE CONTROL AND WARNING SYSTEMS, O2, AND IV ANTIBIOTICS INFUSING, ACCOMPANIED BY ER NURSE. NURSING ASSESSMENT PERFORMED. ADMISSION COMPLETED. PT'S FINJGERS ARE COLD, PULSE OXIMETRY IS GIVES LOW READINGS, PLACED ON FOREHEAD, O2 70'S-80'S. IV X2 INTACT, FLSUH PROPERLY. BP 120'S SYSTOLIC. AFEBRILE. PT ACCEPTS PNA VACCINE. WHEN ASKED IF SHE HAS A LIVING WILL [place] REPORTS HER DAUGHTER IN [place] SALOME GOLDSTEIN HAS HER LIVING WILL. PT REPORTS HER DAUGHTER NICOLE HARRIS TRANSPORTS HER.M RECENT STRESSES ARE HER"SON." PT REPORTS CHRONIC BACK PAIN AND REQUEST PAIN MEDIACTION, RATES 9/10. PT HAS SCATTERED BRUISES AND SCABBED LESIONS ON BILAT UE. PT REPORTS SHE USES A WALKER AT HOME AND HAS FREQUENT FALLS ON AND OFF. POC DISCUSSED.OBSERVES A WEAK AND UNSTEADY GAIT WITH ASSIST X2 WHEN PT WALKED TO HER BED FROM STRETCHER. CALL LIGHT WITHIN REACH.
--- NOTE | 2020-03-19 03:15 | NUR ---
CALLED AND SPOKE TO DR LUGO TO NOTIFY OF PATIENT'S O2 SAT IN THE 70'S-80'S, PT IS ON 10 L/MIN HIGH FLOW NC. SPO2 READINGS INACCURATE WELL DUE TO PATIENT'S COLD FINGERS, O2 READ OFF OF FOREHEAD NOW. I ALSO ASKED DR LUGO IF HE WANTED TO ORDER A CT OF CHEST, DR LUGO REPORTS KIDNEY FUNCTION NOT SUITABLE FOR CT AT THIS MOMENT, PT NEEDS MORE IV HYDRATION. NEW ORDERS RECEIVED.
--- NOTE | 2020-03-19 03:20 | NUR ---
PLACED HEAT PACK IN PILLOW CASE AND PLACED ON LEFT HAND/FINGERS, PT'S 02 SAT READ 99% ON 10 L/MIN HIGH FLOW NC. O2 TITRATED SLOWLY TO 5 L/MIN, SATS 90%-91%. PATIENT CONTINUES TO LAY PRONE.
--- NOTE | 2020-03-19 04:50 | NUR ---
PT'S 02 SUPPORT WAS CHANGED TO THE NNREBREATHER AT 15 L/MIN. PT SATS 94%. PT WAS SATING 870'S-80'S EVEN WITH THE HEAT PACK ON HER HAND AND HIGH FLOW AT 10 L/MIN. ONCE I CHANGED HER OVER TO THE NONREBREATHER HER 02 SATS NOW READING 94%. PT DOES NOT SHOW ANY DISTRESS, RESTS WITH EYES CLOSED. AWAKENS EASILY WHEN SPOKEN TO, FOLLOWS ALL DIRECTIONS, ANSWERS QUESTIONS.
--- NOTE | 2020-03-19 06:03 | NUR ---
PT'S O2 WEANED TO 10 L/MIN ON NONREBREATHER. PT IN NO ACUTE DISTRESS. RESTS WITH HOB 30 DEGREES, EYES CLOSED, AWAKENS EASILY WHEN SPOKEN TO. CALL LIGHT WITHIN REACH. OFFERS NO COMPLAINTS OR NEEDS AT THIS TIME.
--- NOTE | 2020-03-19 07:23 | NUR ---
PT SLEEPING IN BED. NO S/S OF DISTRESS AT THIS TIME. WILL CONTINUE TO MONITOR.
--- NOTE | 2020-03-19 08:30 | NUR ---
RT @BEDSIDE TITRATING O2 UP TO 15L NRB D/T LOW 02 STATS.
--- NOTE | 2020-03-19 09:31 | NUR ---
DR SCHILLING @BEDSIDE
--- NOTE | 2020-03-19 11:00 | NUR ---
PT SLEEPING IN BED, NO S/S OF DISTRESS. CALLBELL W/IN REACH. WILL CONTINUE TO MONITOR.
--- NOTE | 2020-03-19 11:45 | NUR ---
NPO FOR LUNCH D/T RESPIRATORY STATUS. ON 15L NRB MASK.
--- NOTE | 2020-03-19 13:00 | NUR ---
PT SLEEPING IN BED, NO S/S OF DISTRESS. CALLBELL W/IN REACH. WILL CONTINUE TO MONITOR.
--- NOTE | 2020-03-19 14:32 | NUR ---
AMOL, SALOME GOLDSTEIN, FAXED POA FORMS. SALOME UPDATED ON PTS STATUS. SHE WILL GIVE CODE TO DAUGHTER, NICOLE. CM AWARE OF POA INFO.
--- NOTE | 2020-03-19 16:02 | NUR ---
PT HAS NOT URINATED ALL SHIFT. PT NOT USING PUREWICK, TRYING TO GET OUT OF BED. RBVTO FROM DR SCHILLING TO PLACE CATH THEODORE. THEODORE ESTABLISHED USING STERILE PROCEDURE. ALMOST 1L CLOUDY YELLOW URINE OUTPUT IMMEDIATELY. STICKER PLACED ON RIGHT UPPER THIGH TO SECURE.
--- NOTE | 2020-03-19 16:43 | NUR ---
RT CALLED TO ROOM FOR O2 SATS IN THE MID-HIGH 80'S
--- NOTE | 2020-03-19 18:39 | NUR ---
@BEDSIDE D/T PT TAKING OFF HER MASK, AGAIN, WHICH MAKES HER O2 DROP TO THE 40'S. NOTIFIED. PER DR SCHILLING, TRANSFER TO [facility].
--- NOTE | 2020-03-19 18:50 | NUR ---
VERBAL TELEPHONE PERMISSION OBTAINED FROM AMOL GOLDSTEIN TO TRANSFER PT TO [facility]. ALEJANDRO HAJI RN
--- NOTE | 2020-03-19 18:50 | NUR ---
CALLED AND SPOKE TO TANISHA AT [facility] TRANSFER [facility] TO NOTIFY OF TRANSFER ORDER BY DR SCHILLING, HIS PHONE NUMBER WAS PROVIDED. 1901: FACESHEET FAXED 1909: RT OBTAINED ABG 1918: DR SCHILLING NOTIFIED OF ABG RESULTS 1924: CT CALLED FOR DISK FOR PATIENT TO SEND WITH TRANSFER PAPERWORK 1949: DR SCHILLING PLACED ORDERS FOR BLOOD WORK STAT 2033: ACID LOADER CALLED TO NOTIFY OF CRITICAL TROPONIN 0.145
--- NOTE | 2020-03-19 18:57 | NUR ---
RBVTO FOR ABG, & ADD HIGH FLOW TO NRB.
--- NOTE | 2020-03-19 19:38 | NUR ---
PATIENT LAYS WITH HOB NEAR 30 DEGREES. PT DOES NOT COMPLAIN OF ANY PAIN OR SOB. PT DOES NOT SHOW RESPIRATORY DISTRESS. PT IS ON NONREBREATHER AT 15 L/MIN, O2 SATS READS 84%-91% AT TIMES. BP 107/50 MMHG. HR RANGES 80'S. PT WAS NOTIFIED OF TRANSFER, ALSO NOTIFIED PT THAT HER POA SALOME CONSENTED VIA TELEPHONE FOR TRANSFER X2 NURSE WITNESSES. IV X2 PATENT, THEODORE CATHETER PATENT. PT WANTS TO KNOW WHEN SHE WILL BE LEAVING, I LET LET HER KNOW I WILL KEEP HER UPDATED. CALL LIGHT WITHIN REACH.
--- NOTE | 2020-03-19 20:06 | NUR ---
BLOOD DRWN BY THIS NURSE. PT TOLERATED WELL. BLOOD TAKEN DOWN STAT. AWAITING RESULTS TO NOTIFY DR SCHILLING.
[2020-03-19 20:23] LABS: ALBUMIN 2.9 g/dL (3.2-5.0); ALKALINE PHOSPHATASE 90 u/l (38-126); ANION GAP 13 (6-22 (CALC)); BILIRUBIN, TOTAL 0.5 mg/dL (0.0-1.4); BUN 18 mg/dL (8-23); BUN/CREATININE RATIO 19 (12-20 (CALC)); CARBON DIOXIDE 21 mmol/l (22-30); CHLORIDE 109 mmol/l (95-108); GFR 55 ML/MIN (>=60 (CALC)); GFR FOR AFR.AMER. > 60 ML/MIN (>=60 (CALC)); POTASSIUM 4.4 mmol/l (3.5-5.1); SGOT/AST 50 u/l (9-36); SODIUM 138 mmol/l (137-146); TOTAL PROTEIN 6.1 g/dL (6.3-8.2)
[2020-03-19 20:35] LABS: C-REACTIVE PROTEIN 13.7 mg/dL (0-0.9)
--- NOTE | 2020-03-19 20:45 | NUR ---
PT TAKES HER MASK OFF TO SCRATCH HER NOSE, DOES NOT PLACE IT BACK ON. WENT IN ROOM TO PLACE BACK ON. PT ABLE TO REPOSITION HERSELF. DENIES CHEST PAIN AT THIS TIME.
--- NOTE | 2020-03-19 20:52 | NUR ---
DR SCHILLING CALLED HERE, UPDATED HIM ON PATIENT, HE WILL PLACE NEW ORDERS.
--- NOTE | 2020-03-19 21:52 | NUR ---
DR SCHILLING CALLED HERE, UPDATES GIVEN, RT NOTIFIED OF ABG IN 1 HR.
--- NOTE | 2020-03-19 21:56 | NUR ---
PT RESTS WITH HOB ABOUT 30 DEGREES. PULLS ON MASK, NEEDS CONSTANT REMINDER NOT TO PULL ON MASK. O2 SATS 86%-88%. NO COMPLAINTS OF PAIN. NO SOB NOTED. REQUESTS SIPS OF WATER, PROVIDED.
--- NOTE | 2020-03-19 22:29 | NUR ---
PT TAKES MASK OFF, WHEN ASKED TO PLACE MASK BACK ON HE HESITATES TO PUT IT BACK ON, PT REPORTS THE MASK "IS REALLY BOTHERING ME, I CAN'T BREATHE." I HAVE EXPLAINED TO PT WHY SHE IS WEARING THE NONREABREATHER MASK. PT IS SLIGHTLY TACHYPNEIC 22 RPM. BECOMING ANXIOUS, CONTINUOUSLY MONITORING.
--- NOTE | 2020-03-19 23:12 | NUR ---
NOTIFIED ABG RESULTS TO DR SCHILLING.
--- NOTE | 2020-03-19 23:18 | NUR ---
ER DOCTOR BRITTNEY NOTIFIED ORDERS BY DR SCHILLIGN TO INTUBATE PT.
--- NOTE | 2020-03-19 23:22 | NUR ---
03/19/20 2322: DR LUGO AT BEDSIDE 2333: ETOMADATE 20 MG IV GIVEN ON RAC 2334: SUCCYNLCHOLINE 100MG IV GIVEN ON RAC 2335: 7.5 ET TUBE PLACED, 23 CM TIP TO LIP 2340: DIPRIVAN 5 MCG/KG/MIN STARTED. 2343: PORTABLE CXR 2345: RESTRAINTS INITIATED. BILATERAL SOFT WRIST RESTRAINTS. PT DOES TRY TO PULL ON ET TUBE, IS RESTLESS.
--- NOTE | 2020-03-19 23:49 | NUR ---
SPOKE TO [facility] TRANSFER [facility] YOUTH SPECIALIST TO FIND OUT IF THERE WILL BE A BED ASSIGNMENT SOON. RESPRESENTATIVE REPORTS DAGOBERTO WILL BE CALLING ME BACK REAGRDING THIS MATTER.
[2020-03-20] VITALS (12 sets, daily range): BP systolic 78–132; BP diastolic 45–92
--- NOTE | 2020-03-20 | NUR ---
OG TUBE PLACED, VERIFIED PLACEMENT BY ASUCULTATION.
--- NOTE | 2020-03-20 00:06 | NUR ---
SPOKE TO DR SCHILLING ON THE PHONE, ORDER TO TRANSFER VIA [facility]. PT IS STABLE TO [facility] VIA GROUND.
--- NOTE | 2020-03-20 00:08 | NUR ---
SPOKE TO DAGOBERTO AT TRANSFER CENTER, SHE WILL CALL ME BACK WITH ROOM ASSIGNMENT.
--- NOTE | 2020-03-20 00:25 | NUR ---
AT 2335, PATIENT WAS INTUBATED BY DR LUGO WITH A 7.5 ETT AT 19 CM OF THE LIPS. TUBE POSITION VERIFIED WITH CO2 DETECTOR, LISTENING TO BREATH SOUND AND THEN CHEST X-RAY. PATIENT PLACED ON VENTILATOR AC RATE 16, VT 400, PEEP 5 WITH 100%. ABG DRAWN AND ANALYSED BEFORE INTUBATION.
--- NOTE | 2020-03-20 01:27 | NUR ---
[facility] HERE TO TILE LAYER PATIENT, REPORT WAS GIVEN TO [facility] VICE PRESIDENT OF BUSINESS DEVELOPMENT.
--- NOTE | 2020-03-20 02:07 | NUR ---
PATIENT TRANSFERRED VIA STRETCHER BY [facility]. ON VENTILATOR AND PROPOFOL, STABLE TO [facility].
--- NOTE | 2020-03-20 02:09 | NUR ---
CALLED AND SPOKE TO MARYLOU AT [facility] ICU TO GIVE SBAR REPORT. PROVIDED PHONE NUMBER FROM HERE (ICU). PROVIDED AMOL'S PHONE NUMBER.
--- NOTE | 2020-03-20 02:25 | NUR ---
ATTEMPTED TO CALL MAOL GOLDSTEIN TO UPDATE AND GIVE PT ROOM NUMBER AT [facility]. NO ANSWER.
--- NOTE | 2020-03-20 02:27 | NUR ---
AMOL GOLDSTEIN CALLED BACK HERE, UPDATED HER ON PT AND PROVIDED HER WITH [facility] ICU PHONENUMBER, PT'S ROOM NUMBER.
--- NOTE | 2020-03-20 04:08 | NUR ---
ELEANOR, PHARMACIST AT [facility] CALLED HERE TO ASK WHAT ANTIBIOTICS AND WHAT TIME SHE WAS LAST GIVEN THEM.
--- NOTE | 2020-03-21 07:19 | NUR ---
PT WAS TRANSFERRED TO [facility]. SPOKE WITH NURSE BETTS IN ICU, URINE CX RESULTS FAXED TO [phone]
== END 2020-03-20 02:07 | disposition short-term general hospital (02) | DRG 208 ==
LOC: ED 22:21 → ED-I 03-19 00:53 → ED 03-19 01:13 → ED-I 03-19 01:14 → ICU 03-19 01:14
PROVIDERS: Family Medicine; Internal Medicine; ADMIT Internal Medicine; ATTEND Internal Medicine
PROC: 0BH17EZ Insertion of Endotracheal Airway into Trachea, Via Natural or Artificial Opening (ICD-10-PCS; principal; 2020-03-19)
PROC: 5A1935Z Respiratory Ventilation, Less than 24 Consecutive Hours (ICD-10-PCS; 2020-03-19)
PROC: 0T9B70Z Drainage of Bladder with Drainage Device, Via Natural or Artificial Opening (ICD-10-PCS; 2020-03-19)
DX: U07.1 COVID-19 (principal); J12.89 Other viral pneumonia; J96.01 Acute respiratory failure with hypoxia; N39.0 Urinary tract infection, site not specified; N17.9 Acute kidney failure, unspecified; I24.8 Other forms of acute ischemic heart disease; G40.909 Epilepsy, unspecified, not intractable, without status epilepticus; I25.10 Atherosclerotic heart disease of native coronary artery without angina pectoris; E11.42 Type 2 diabetes mellitus with diabetic polyneuropathy; G89.4 Chronic pain syndrome; B96.20 Unspecified Escherichia coli [E. coli] as the cause of diseases classified elsewhere; Z85.3 Personal history of malignant neoplasm of breast; Z95.5 Presence of coronary angioplasty implant and graft; Z88.0 Allergy status to penicillin
CPT/HCPCS: J1650

== ENCOUNTER 2021-01-13 22:04 | Emergency (ER) | payer MEDICARE, MEDICAID ==
[2021-01-13] MEDS ORDERED: PIOGLITAZONE HC30 MG PO (23:07)
[2021-01-13] MEDS ORDERED: LIPITOR80 M1 PO (23:07)
[2021-01-13] MEDS ORDERED: ROWEEPRA500 MG PO (23:08)
[2021-01-13] MEDS ORDERED: PREGABALIN200 MG PO (23:09)
[2021-01-13] MEDS ORDERED: TRAZODONE50 MG PO (23:10)
[2021-01-13] MEDS ORDERED: PERCOCET 10/31 COMBO PO (23:11)
[2021-01-14 01:00] VITALS: BP 146/70
== END 2021-01-14 01:12 | disposition home or self-care (01) ==
LOC: ED 22:04
PROC: 2W3CX1Z Immobilization of Right Lower Arm using Splint (ICD-10-PCS; principal; 2021-01-13)
DX: S52.501A Unspecified fracture of the lower end of right radius, initial encounter for closed fracture (principal); S52.611A Displaced fracture of right ulna styloid process, initial encounter for closed fracture; M54.5 Low back pain; I10 Essential (primary) hypertension; E11.9 Type 2 diabetes mellitus without complications; I25.10 Atherosclerotic heart disease of native coronary artery without angina pectoris; G40.909 Epilepsy, unspecified, not intractable, without status epilepticus; W01.0XXA Fall on same level from slipping, tripping and stumbling without subsequent striking against object, initial encounter; Y92.009 Unspecified place in unspecified non-institutional (private) residence as the place of occurrence of the external cause; Z95.5 Presence of coronary angioplasty implant and graft; Z86.16 Personal history of COVID-19; Z86.73 Personal history of transient ischemic attack (TIA), and cerebral infarction without residual deficits; Z85.3 Personal history of malignant neoplasm of breast